=== PATIENT | male | born 1950 | race Caucasian/White ===

== ENCOUNTER → 2018-04-21 | Outpatient (CLI) | payer MEDICARE, OTHER ==
[2018-04-18] MEDS: PHYTONADIONE 10 MG/ML INJ SC (14:09)
[~2018-04-21] MED LIST: CEFAZOLIN 1 GM INJ; DEXAMETHASONE 4 MG/ML 1 ML INJ; FENTAnyl 50 MCG/ML VIAL; GLYCOPYRROLATE 0.4 MG INJ; HYDROmorphONE 0.5 MG/0.5 ML SYG IV; HYDROmorphONE 1 MG/ML SYG IV; MIDAZOLAM 1 MG/ML 2 ML INJ; NEOSTIGMINE 3 MG/3 ML SYRINGE; ONDANSETRON 4 MG INJ; PHYTONADIONE 10 MG/ML INJ; PROPOFOL 20 ML; ROCURONIUM 50 MG INJ
[2018-04-21] MEDS: LACTATED RINGER'S 1,000 ML IV* ×4 (06:22→06:53)
[2018-04-21 06:34] LABS: INR 1.43; PROTIME 17.7 Sec (11.9-14.9); PT RATIO 1.4
[2018-04-21] MEDS: VANCOMYCIN 1 GM (PMX) 250 ML IVPB (06:51)
[2018-04-21 07:21] LABS: PARTIAL THROMBOPLASTIN TIME 35.8 Sec (25.0-35.0)
[2018-04-21 07:21] LABS: PLATELET COUNT 74 10^3/UL (140-415)
== END | disposition home or self-care (01) ==
LOC: SDS 05:31 → LAB 05:31
DX: M51.26 Other intervertebral disc displacement, lumbar region (principal); Z53.8 Procedure and treatment not carried out for other reasons
CPT/HCPCS: 85049; 85610; 85730; 86850; 86900; 86901; 86920